=== PATIENT | female | born 1935 | race Caucasian/White ===

== ENCOUNTER 2016-12-19 07:53 | Outpatient (CLI) | payer MEDICARE ==
[~2016-12-19] VITALS: Ht 154.9 cm; Wt 54.5 kg
--- NOTE | ~2016-12-19 | OP ---
PATIENT NAME: NELLY LIM MEDICAL RECORD: [id number] :35 LOCATION:D.CAT ADMISSION DATE: SURGEON: EVA MCCORD MD DATE OF OPERATION: 12/19/2016 PROCEDURES: 1. PTCA stent RCA. 2. Left heart catheterization. 3. Selective coronary angiography. 4. Left ventriculogram. INDICATION: Angina and coronary artery disease. PROCEDURE IN DETAIL: After informed consent was obtained and after a detailed explanation of risks, benefits as well as alternative therapies, the patient elected to proceed with angiogram and angioplasty. The right radial area was prepped and draped in normal sterile fashion. The right radial artery was cannulated via modified Seldinger technique with placement of 6-Portuguese sheath. All catheters exchanged through this sheath. FINDINGS: The left ventriculogram was performed in the standard 30-degree [place] view reveals good cardiac wall motion throughout all segments. Overall ejection fraction estimated 60%. SELECTIVE CORONARY ANGIOGRAPHY: 1. Left main showed no significant angiographic disease. 2. Left anterior descending has an 80% to 90% stenosis in the mid vessel. 3. Left circumflex has moderate irregularities, but no flow-limiting stenosis. 4. Right coronary has 99% stenosis in the mid vessel. PTCA STENT OF THE RIGHT CORONARY: The stent used was a 3.0 x 38 mm Resolute. Result was 0% residual stenosis. OVERALL IMPRESSION: Successful percutaneous transluminal coronary angioplasty stent of the right coronary artery going from 99% initial stenosis to 0% residual. PLAN: PTCA stent of the LAD in the near future. TRANSINT:[id number] Voice Confirmation ID: [id number] DOCUMENT ID: [id number] EVA MCCORD MD CC: [id number] DICTATION DATE: 12/19/16 1105 CATERING TRUCK OPERATOR: 12/19/162021 DEP CLI 12/19/16 [place] [address]
--- NOTE | ~2016-12-19 | HEMODYNAMI ---
PATIENT:NELLY LIM MEDICAL RECORD: [id number] : 35 LOCATION:[facility] ADMISSION DATE: 12/19/16 Generatedon:12/19/201611:05 Patient name: NELLY LIM Patient #: [id number] SSN: DO B: 1935 Date of study: 12/19/2016 Page: Of Hemodynamic Procedure Report Patient Data Patient Demographics Procedure consent was obtained First Name: NELLY Gender: Female Last Name: RAPHAEL : 1935 [facility] Initial: RUTHANN Age: 81 year(s) Patient #: [id number] Race: Additional ID: [id number] Contact details [address]: [address] [place] [address] rd State: [place] City: [place] Zip code: [address] Past Medical History Allergies Allergen Reaction Date Comments Reported Penicillins 12/19/2016 Admission Admission Data Admission Date: 12/19/2016 Admission Time: 7:53 Height (in.): 61 BSA: 1.52 (m2) Height (cm.): 154.94 BMI: 22.67 (kg/m2) Weight (lbs.): 120 Weight (kg.): 54.43 Lab Results Lab Result Date: 12/19/2016 Lab Result Time: 0:00 Biochemistry Name Units Result Min Max Creatinine mg/dl 1.1 --(--*-)-- 0.6 1.3 CBC Name Units Result Min Max Hemoglobin g/dl 15.4 --(-*--)-- 13.5 17.5 Procedure Procedure Types Cath Procedure Diagnostic Procedure LHC LHC w/Coronaries PCI Procedure Coronary Stent Initial Miscellaneous Procedures Moderate Sedation up to 30 minutes Procedure Description Procedure Date Procedure Date: 12/19/2016 Procedure Start Time: 10:49 Procedure End Time: 11:05 Procedure Staff Name Function Rogelio Noonan MD Performing Physician Robert Santoyo RT Scrub Justin Coleman RN Nurse Sneha Goins RT Monitor Procedure Data Cath Procedure Fluoroscopy Diagnostic fluoroscopy Total fluoroscopy Time: 4.7 time: 4.7 min min Diagnostic fluoroscopy Total fluoroscopy dose: 295 dose: 295 mGy mGy Contrast Material Contrast Material Type Amount (ml) Isovue 300 75 Entry Location Entry Primary Successful Side Size Upsize Upsize Entry Closure Conti ccessful Closure Location (Fr) 1 (Fr) 2 (Fr) Remarks Device Remarks Radial Right 6 Fr Mechanical artery Short Compression Estimated blood loss: 10 ml Diagnostic catheters Device Type Used For End Catheter Placement Diagnostic Terumo 5Fr LV Angiography [place] 110cm catheter Diagnostic Terumo 5Fr Left Coronary [place] 110cm catheter Angiography Diagnostic Terumo 5Fr Right Coronary [place] 110cm catheter Angiography Procedure Complications No complications Procedure Medications Medication Administration Route Dosage Oxygen NC 2 l/min Heparin Flush Bag added to field 2 bags (1000units/500ml NS) 0.9% NaCl I.V. 100 ml/hr Radial Cocktail added to field 1 syringe (Verapomil 2mg/Nitro 400mcg/Heparin 1500units) Fentanyl I.V. 50 mcg Versed I.V. 1 mg Fentanyl I.V. 50 mcg Versed I.V. 1 mg Fentanyl I.V. 50 mcg Radial Cocktail I.A. 1 syringe (Verapomil 2mg/Nitro 400mcg/Heparin 1500units) Heparin Bolus I.V. 4000 units Hemodynamics Rest BSA: 1.52 (m2) HGB: 15.4 (g/dl) O2 Consumption: Estimated: 133.03 (ml/min) O2 Co nsumption indexed: Estimated:87.52 (ml/min/m) Heart Rate: 64 (bpm) Snapshots Pre Cath Intra NCS Post Cath Vital Signs Time Heart Resp SPO2 etCO2 FU6neuw NIBP (mmHg) Rhythm Pain Sedation Rate (ipm) (%) (mmHg) (mmHg) Status Level (bpm) 10:26:43 80 19 96 0 0 137/75(125) NSR 0 (11) 10(A) , No pain 10:30:53 73 17 96 0 0 143/85(110) NSR 0 (11) 10(A) , No pain 10:35:09 72 16 89 0 0 133/74(97) NSR 0 (11) 10(A) , No pain 10:39:23 69 19 97 0 0 126/72(87) NSR 0 (11) 9(A) , No pain 10:43:35 63 19 97 0 0 114/66(90) NSR 0 (11) 9(A) , No pain 10:47:45 66 19 96 0 0 111/61(89) NSR 0 (11) 9(A) , No pain 10:51:57 67 17 94 0 0 89/50(65) NSR 0 (11) 9(A) , No pain 10:56:00 66 18 93 0 0 95/51(68) NSR 0 (11) 9(A) , No pain 11:00:04 69 17 94 0 0 100/57(73) NSR 0 (11) 9(A) , No pain 11:03:52 70 17 94 0 0 101/58(74) NSR 0 (11) 9(A) , No pain Medications Time Medication Route Dose Verified Delivered Reason Note s Effectiveness by by 10:30:48 Oxygen NC 2 l/min Justin Anderson Per physician Jared Coleman RN RN 10:30:57 Heparin Flush added 2 bags Justin Anderson used for Bag to Jared Coleman RN procedure (1000units/500ml field RN NS) 10:31:07 0.9% NaCl I.V. 100 Justin Anderson Per physician ml/hr Jared Coleman RN RN 10:31:24 Radial Cocktail added 1 Justin Anderson used for (Verapomil to syringe Jared Coleman RN procedure 2mg/Nitro field RN 400mcg/Heparin 1500units) 10:36:14 Fentanyl I.V. 50 mcg Justin Larosey for sedation Jared Coleman RN RN 10:36:21 Versed I.V. 1 mg Justin Justin for sedation Jared Coleman RN RN 10:45:27 Fentanyl I.V. 50 mcg Justin Ujstin for sedation Jared Coleman RN RN 10:45:32 Versed I.V. 1 mg Justin Justin for sedation Jared Coleman RN RN 10:48:52 Fentanyl I.V. 50 mcg Justin Justin for sedation Jared Coleman RN RN 10:50:13 Radial Cocktail I.A. 1 Justin Kwokrey for (Verapomil syringe Jared pires 2mg/Nitro RN 400mcg/Heparin 1500units) 10:55:13 Heparin Bolus I.V. 4000 Justin Anderson for units Jared Coleman RN anticoagulation crusher setter Log Time Note 10:06:40 Justin Coleman RN sent for patient. Start room use. 10:15:59 Patient Height : 61 cm 10:16:04 Patient Weight : 120 kg 10:16:41 Time tracking: Regular hours 10:16:45 Plan of Care:Hemodynamics will remain stable., Cardiac rhythm will remain stable., Comfort level will be maintained., Respiratory function will remain adequate., Patient/ family verbilizes understanding of procedure., Procedure tolerated without complication., Recovers from procedure without complications.. 10:16:59 H&P Date Dictated: 12/04/2016 Within 30 days and on chart., H&P Addendum completed by physician on day of procedure. (MUST COMPLETE FOR ALL OUTPATIENTS). 10:17:07 ACC The patient was administered the following blood thiners within the last 24 hours: ACCAspirin, ACCPlavix 10:19:25 Patient received from Pre/Post Procedure Room to CCL 1 Alert and oriented. Tansferred to table in Supine position. 10:19:26 Warm blankets applied, and lavern hugger turned on for patient comfort. 10:19:27 Correct patient and procedure confirmed by team. 10:19:28 Signed procedure consent form obtained from patient. 10:19:29 ECG and BP/O2 sat monitors applied to patient. 10:19:30 Full Disclosure recording started 10:25:42 Vital chart was started 10:29:39 Rhythm: sinus rhythm 10:29:41 Baseline sample Acquired. 10:29:45 Pre-procedure instructions explained to patient. 10:29:45 Pre-op teaching completed and patient verbalized understanding. 10:29:46 Family in waiting room. 10:29:48 Patient NPO since Midnight. 10:29:54 Patient allergic to Penicillins 10:29:57 Is the patient allergic to Iodine/contrast media? No. 10:30:06 Is patient on blood thinner?Yes 10:30:13 Patient diabetic? No. 10:30:17 Previous problem with sedation/anesthesia? No ? 10:30:26 Snore? Yes 10:30:28 Sleep apnea? No 10:30:29 Deviated septum? No 10:30:30 Opens mouth fully? Yes 10:30:31 Sticks out tongue? Yes 10:30:34 Airway obstruction? No ? 10:30:36 Dentures? No ? 10:30:40 Pre procedure: right dorsailis pedis pulse 2+ Normal; easily identifiable; not easily obliterated 10:30:43 Modified Juan's test Ulnar < 7 seconds 10:30:44 Patient pain scale 0/10 ?. 10:30:48 Oxygen 2 l/min NC was administered by Justin Coleman RN; Per physician; 10:30:50 IV patent on arrival in left hand with 0.9% NaCl at [facility]. 10:30:57 Heparin Flush Bag (1000units/500ml NS) 2 bags added to field was administered by Justin Coleman RN; used for procedure; 10:31:07 0.9% NaCl 100 ml/hr I.V. was administered by Justin Coleman RN; Per physician; 10:31:08 Lab Result : Creatinine 1.1 mg/dl 10:31:08 Lab Result : Hemoglobin 15.4 g/dl 10:31:12 Lab results completed and on chart. 10:31:15 Right Radial & Right Groin area was prepped with chlora-prep and draped in sterile fashion 10:31:16 Alarms reviewed by R. N. 10:31:17 Sharps counted by scrub and verified by R.N. 10:31:19 Use device set Radial Dx 10:31:20 Acist Syringe opened to sterile field. 10:31:20 Medline Cath Pack opened to sterile field. 10:31:21 Bag Decanter opened to sterile field. 10:31:21 Terumo 6Fr Slender Glidesheath opened to sterile field. 10:31:21 St Vinicio 260cm J .035 wire opened to sterile field. 10:31:22 Acist Hand Control opened to sterile field. 10:31:22 Acist Manifold opened to sterile field. 10:31:23 Tegaderm 4 x 4 opened to sterile field. 10:31:23 MBrace Wrist Support opened to sterile field. 10:31:24 Radial Cocktail (Verapomil 2mg/Nitro 400mcg/Heparin 1500units) 1 syringe added to field was administered by Justin Coelman RN; used for procedure; 10:35:46 Final Timeout: patient, procedure, and site verified with staff and physician. All members of the team are in agreement. 10:35:52 Right Radial site verified by team. 10:35:56 Physical assessment completed. ASA score P 2 - A patient with mild systemic disease as per Rogelio Noonan MD. 10:36:00 Sedation plan: IV Moderate Sedation Versed, Fentanyl 10:36:14 Fentanyl 50 mcg I.V. was administered by Justin Coleman RN; for sedation; 10:36:21 Versed 1 mg I.V. was administered by Justin Coleman RN; for sedation; 10:45:27 Fentanyl 50 mcg I.V. was administered by Justin Coleman RN; for sedation; 10:45:32 Versed 1 mg I.V. was administered by Justin Coleman RN; for sedation; 10:48:52 Fentanyl 50 mcg I.V. was administered by Justin Coleman RN; for sedation; 10:49:18 Procedure started. 10:49:25 Local anesthetic to right radial artery with Lidocaine 2% by Rogelio Noonan MD.INITIAL ACCESS ONLY 10:49:36 A 6 Fr Short sheath was inserted into the Right Radial artery 10:50:04 A Diagnostic Terumo 5Fr [place] 110cm catheter was advanced over the wire and used for LV Angiography. 10:50:13 Radial Cocktail (Verapomil 2mg/Nitro 400mcg/Heparin 1500units) 1 syringe I.A. was administered by Rogelio Noonan MD; for vasodilation; 10:51:16 LV gram done using [place] 10:51:22 EF : 60 % 10:51:26 Injector settings: Ml/sec: 5, Volume: 15, 10:51:46 A Diagnostic Terumo 5Fr [place] 110cm catheter was advanced over the wire and used for Left Coronary Angiography. 10:51:58 Ondore BasixCompak Inflation Kit opened to sterile field. 10:51:59 Moran Whisper J 300cm 0.014 guide wire opened to sterile field. 10:52:42 A Diagnostic Terumo 5Fr [place] 110cm catheter was advanced over the wire and used for Right Coronary Angiography. 10:53:00 Catheter removed. 10:53:39 Medtronic Launcher 6Fr AR 2.0 guide catheter opened to sterile field. 10:54:52 6 Fr AR 2.0 guide catheter was inserted over the wire 10:55:13 Heparin Bolus 4000 units I.V. was administered by Justin Coleman RN; for anticoagulation; 10:55:30 Whisper wire advanced. 10:56:41 Inflation number: 1 A [place] Sci [place] 2.5 X 12 balloon was prepped and advanced across the Mid RCA, then inflated to 13 KATHERINE for 0:17 (min:sec). 10:56:57 Inflation number: 2 The [place] Sci [place] 2.5 X 12 balloon was reinflated across the Mid RCA, to 13 KATHERINE for 0:09 (min:sec). 10:57:53 Balloon removed over the wire. 10:59:37 Inflation Number: 3 A Medtronic Resolute 3.0 X 38 stent was prepped and advanced across the Mid RCA. The stent was deployed at 11 KATHEIRNE for 0:05 (min:sec). 11:00:18 Stent catheter was removed intact over wire. 11:00:20 Wire removed. 11:00:21 Guide catheter removed. 11:00:44 Sheath removed intact; hemostasis achieved with Mechanical Compression to the Right Radial artery. 11:00:46 Procedure ended.(Physican Out) 11:01:08 Fluoroscopy time 04.70 minutes. 11:01:12 Fluoroscopy dose: 295 mGy 11:01:12 Flurop Dose total: 295 11:01:17 Contrast amount:Isovue 300 75ml. 11:01:18 Sharps counted by scrub and verified by R.N. 11:01:20 TR band inflated with 12cc of air. 11:01:27 Terumo TR Band Standard opened to sterile field. 11:01:30 Insertion/operative site no bleeding no hematoma. 11:01:35 Post right radial artery:stable, clean and dry 11:01:37 Post Procedure Pulses reassessed and unchanged 11:01:40 Post-procedure physical assessment completed. ASA score P 2 - A patient with mild systemic disease as per Rogelio Noonan MD. 11:01:43 Post procedure rhythm: unchanged. 11:01:47 Estimated blood loss: 10 ml 11:01:49 Post procedure instruction explained to patient.Patient verbalizes understanding. 11:01:50 Patient needs reinforcement of post procedure teaching. 11:02:00 Procedure type changed to Cath procedure, Diagnostic procedure, LHC, LHC w/Coronaries, PCI procedure, Coronary Stent Initial, Miscellaneous Procedures, Moderate Sedation up to 30 minutes 11:02:05 Procedure Complication : No complications 11:02:07 See physician's report for complete and final results. 11:05:06 Procedure and supply charges have been captured, reviewed, submitted and are correct. 11:05:09 Vital chart was stopped 11:05:11 Report given to Pre/Post Procedure Room. 11:05:14 Patient transfered to Pre/Post Procedure Room with Stretcher. 11:05:20 Procedure ended. 11:05:20 Full Disclosure recording stopped 11:05:23 End room use (Document Last) Intervention Summary Intervention Notes Time ActionType Lesion and Equipment Action# Pressure Duration Attributes Used 10:56:41 Inflate Mid RCA [place] 1 13 00:17 balloon Sci [place] 2.5 X 12 balloon 10:56:57 Reinflate Mid RCA [place] 2 13 00:09 balloon Sci [place] 2.5 X 12 balloon 10:59:37 Place stent Mid RCA Medtronic 3 11 00:05 Resolute 3.0 X 38 stent Device Usage Item Name Manufacture Quantity Catalog Number Hospital Part Current Mini tonsil hospital Lot# / Charge Number Stock Stock Serial# Code Acist Acist 1 02254 636122 717822 346960 20 Syringe Medical Systems Inc Medline Cardinal 1 [id number] [id number] 16656 445760 5 Cath Pack Health Bag Microtek 1 2002S 851866 69943 044263 5 Stazoo.[employer]. Terumo 6Fr Terumo 1 [id number] 470551 387220 885159 [address] V[facility] St Vinicio 1 758647 230835 932003 127278 30 260cm J .035 wire Acist Hand Acist 1 32889 034081 858930 742929 5 Control Medical Systems Inc Acist Acist 1 13185 869859 041801 086354 5 Manifold Medical Systems Inc Tegaderm 4 3M 1 1626W 536528 975690 927647 5 x 4 MBrace Advanced 1 140-0250-00 572226 38672 643473 5 Wrist Vascular Support Dynamics Diagnostic Terumo 1 23-2799 839112 258422 629698 5 Terumo 5Fr [place] 110cm catheter Merit Merit 1 [id number] 974165 595370 789533 15 BasixCompak Medical Inflation Kit Moran Moran 1 [id number] 275619 482428 701698 5 Whisper J Vascular 300cm 0.014 guide wire Medtronic Medtronic 1 [id number] 478858 73375 182179 1 Launcher 6Fr AR 2.0 guide catheter [place] Sci [place] 1 [id number] 279628 576208 299716 1 [id number] Samba Ads 2.5 X 12 balloon Medtronic Medtronic 1 [id number] 039635 221753 0 [id number] Resolute 3.0 X 38 stent Terumo TR Terumo 1 [id number] 842626 763357 955487 40 Band Standard Signature Audit [place] Stage Time Signature Unsigned Intra-Procedure 12/19/2016 Sneha 11:05:33 AM Counts RT(R) Signatures Monitor : Sneha Signature : Counts RT Date : Time : [place] [id number] [place] [address]
[2016-12-19 08:47] VITALS: BP 158/81; Ht 154.9 cm; Wt 54.5 kg
[2016-12-19] MEDS ORDERED: PLAVIX75 MG PO (08:52)
[2016-12-19] MEDS ORDERED: LEVOTHYROXINE50 MCG PO (08:52)
[2016-12-19] MEDS ORDERED: BAYER CHEWABLE81 MG PO (08:52)
[2016-12-19] MEDS ORDERED: NORVASC5 MG PO (08:52)
[2016-12-19 08:56] LABS: BASOPHILS 0.4 % (0-2); EOSINOPHILS 2.8 % (0-7); HEMATOCRIT 46.6 % (36.0-48.0); HEMOGLOBIN 15.4 g/dL (12-16); IMMATURE GRANULOCYTES 0.4 % (0-5); LYMPHOCYTES 17.3 % (15-50); MCH 30.7 pg (26.0-34.0); MEAN PLATELET VOLUME 10.5 fL (7.4-10.4); MONOCYTES 9.7 % (2-11); NEUTROPHILS 69.4 % (40-80); PLATELET COUNT 172 10x3/uL (130-400); RBC 5.01 10x6/uL (4.00-5.40); WBC 7.5 10x3/uL (4.8-10.8)
[2016-12-19 09:04] LABS: ANION GAP 13.9 mmol/L (8-16); CALCIUM 9.6 mg/dL (8.5-10.1); CREATININE - SERUM 1.1 mg/dL (0.6-1.3); POTASSIUM - SERUM 3.9 mmol/L (3.5-5.1)
--- NOTE | 2016-12-19 11:30 | NUR ---
RESTING QUIETLY. 2L NC, NO RESP DISTRESS NOTED. RIGHT WRIST TR BAND IN PLACE, NO BLEEDING OR HEMATOMA NOTED. VSS. NO C/O CHEST PAIN OR NAUSEA. WILL CONTINUE TO MONITOR.
--- NOTE | 2016-12-19 12:00 | NUR ---
ICE CHIPS GIVEN, NO C/O NAUSEA OR CHEST PAIN. 2L NC, NO RESP DISTRESS NOTED. RIGHT WRIST TR BAND IN PLACE, NO BLEEDING OR HEMATOMA NOTED. VSS. WILL CONTINUE TO MONITOR.
--- NOTE | 2016-12-19 12:15 | NUR ---
2L NC, NO RESP DISTRESS NOTED. VSS. NO C/O CHEST PAIN OR NAUSEA. RIGHT WRIST TR BAND IN PLACE, NO BLEEDING OR HEMATOMA NOTED.
--- NOTE | 2016-12-19 12:45 | NUR ---
RIGHT WRIST TR BAND IN PLACE, NO BLEEDING OR HEMATOMA NOTED. 2L NC, NO RESP DISTRESS. NO C/O AT THIS TIME. AT BEDSIDE, CALL LIGHT WITHIN REACH.
--- NOTE | 2016-12-19 13:49 | NUR ---
UP TO RESTROOM WITH ASSISTANCE TO VOID.
--- NOTE | 2016-12-19 14:13 | NUR ---
SANDWICH TRAY GIVEN. RIGHT WRIST TR BAND IN PLACE, NO BLEEDING NOTED. NO C/O AT THSI TIME.
--- NOTE | 2016-12-19 14:21 | NUR ---
2CC OF AIR REMOVED FROM TR BAND, NO BLEEDING NOTED.
--- NOTE | 2016-12-19 14:32 | NUR ---
3CC OF AIR REMOVED FROM TR BAND. NO BLEEDING OR HEMATOMA NOTED.
--- NOTE | 2016-12-19 14:51 | NUR ---
LEFT FA PIV D/C'D WITH CATHETER INTACT, BAND AID TO SITE. UP TO BEDSIDE TO GET DRESSED.
--- NOTE | 2016-12-19 14:55 | NUR ---
REMAINING AIR REMOVED FROM TR BAND, TEGADERM TO SITE. DISCHARGE INSTRUCTIONS GIVEN, VERBALIZED UNDERSTANDING.
--- NOTE | 2016-12-19 15:10 | NUR ---
TAKEN OUT VIA WHEELCHAIR BY CATH COAL UNLOADER. LEFT FACILITY WITH FAMILY MEMBER AND ALL PERSONAL BELONGINGS.
== END 2016-12-19 15:10 | disposition home or self-care (01) ==
LOC: D.CATH 07:53
PROVIDERS: Internal Medicine Interventional Cardiology
DX: I20.9 Angina pectoris, unspecified (principal); R06.02 Shortness of breath; I10 Essential (primary) hypertension; R94.30 Abnormal result of cardiovascular function study, unspecified; Z01.812 Encounter for preprocedural laboratory examination
CPT/HCPCS: 93458; C9600

== ENCOUNTER 2016-12-29 08:05 | Outpatient (CLI) | payer MEDICARE ==
[~2016-12-29] VITALS: Ht 154.9 cm; Wt 54.5 kg
--- NOTE | ~2016-12-29 | HEMODYNAMI ---
PATIENT:NELLY LIM MEDICAL RECORD: [id number] : 35 LOCATION:[facility] ADMISSION DATE: 12/29/16 Generatedon:12/29/201610:29 Patient name: NELLY LIM Patient #: [id number] SSN: [id number] : 1935 Date of study: 12/29/2016 Page: Of Hemodynamic Procedure Report Patient Data Patient Demographics Procedure consent was obtained First Name: NELLY Gender: Female Last Name: RAPHEAL : 1935 Middle Initial: RUTHANN Age: 81 year(s) Patient #: [id number] Race: SSN: [id number] Additional ID: [id number] Contact details Address: [address] [place] [address] rd State: [place] City: [place] Zip code: [address] Past Medical History Allergies Allergen Reaction Date Comments Reported Penicillins 12/19/2016 Other allergy 12/29/2016 penicillin Admission Admission Data Admission Date: 12/29/2016 Admission Time: 8:05 Arrival Date: 12/29/2016 Arrival Time: 8:05 Admit Source: Other Insurance Payor: Medicare Lab Results Lab Result Date: 12/29/2016 Lab Result Time: 0:00 Biochemistry Name Units Result Min Max BUN mg/dl 21 --(----)-* 7 18 Creatinine mg/dl 1.2 --(---*)-- 0.6 1.3 CBC Name Units Result Min Max Hemoglobin g/dl 15 --(-*--)-- 13.5 17.5 Procedure Procedure Types Cath Procedure PCI Procedure Coronary Stent Initial PTCA Additional Miscellaneous Procedures Moderate Sedation up to 30 minutes Procedure Description Procedure Date Procedure Date: 12/29/2016 Procedure Start Time: 10:14 Procedure End Time: 10:27 Procedure Staff Name Function Rogelio Noonan MD Performing Physician Bryanna Wellington RT Scrub Serge Lilly RN Nurse Kaylie Casas RT Monitor Indication Angina Procedure Data Cath Procedure Fluoroscopy Diagnostic fluoroscopy Total fluoroscopy Time: 5.2 time: 5.2 min min Diagnostic fluoroscopy Total fluoroscopy dose: 301 dose: 301 mGy mGy Contrast Material Contrast Material Type Amount (ml) Isovue 300 51 Entry Location Entry Primary Successful Side Size Upsize Upsize Entry Closure Conti ccessful Closure Location (Fr) 1 (Fr) 2 (Fr) Remarks Device Remarks Radial Right 6 Fr Mechanical artery Short Compression Estimated blood loss: 5 ml Procedure Complications No complications Procedure Medications Medication Administration Route Dosage Oxygen NC 2 l/min Lidocaine 2% added to field 20 Heparin Flush Bag added to field 2 bags (1000units/500ml NS) 0.9% NaCl I.V. 100 ml/hr Versed I.V. 1 mg Fentanyl I.V. 50 mcg Radial Cocktail I.A. 1 syringe (Verapomil 2mg/Nitro 400mcg/Heparin 1500units) Versed I.V. 1 mg Fentanyl I.V. 50 mcg Heparin Bolus I.V. 4000 units Hemodynamics Rest HGB: 15 (g/dl) Heart Rate: 57 (bpm) Snapshots Pre Cath Intra NCS Post Cath Vital Signs Time Heart Resp SPO2 NIBP Rhythm Pain Sedation Rate (ipm) (%) (mmHg) Status Level (bpm) 10:01:26 57 15 100 141/68(93) NSR 0 (11) 10(A) , No pain 10:05:46 54 15 98 122/60(97) NSR 0 (11) 10(A) , No pain 10:10:02 55 17 95 102/53(73) NSR 0 (11) 10(A) , No pain 10:14:08 62 15 95 98/57(76) NSR 0 (11) 9(A) , No pain 10:18:20 63 14 98 85/39(76) NSR 0 (11) 9(A) , No pain 10:22:19 66 15 96 103/61(81) NSR 0 (11) 9(A) , No pain 10:26:29 54 15 97 105/48(81) NSR 0 (11) 10(A) , No pain Medications Time Medication Route Dose Verified Delivered Reason Note s Effectiveness by by 10:00:50 Oxygen NC 2 l/min Rogelio Valentine used for Shaista Lilly environmental health safety manager 10:00:57 Lidocaine 2% added 20ml Rogelio Mercado for local to vial Shaista Noonan MD anesthetic field 10:01:02 Heparin Flush added 2 bags Rogelio Mercado used for Bag to Shaista Noonan MD procedure (1000units/500ml field NS) 10:01:10 0.9% NaCl I.V. 100 Rogelio Valentine Per physician ml/hr Shaista Lilly RN 10:09:48 Versed I.V. 1 mg Rogelio Valentine for sedation Shaista Lilly RN 10:09:54 Fentanyl I.V. 50 mcg Rogelio Garcíaie for sedation Shaista Lilly RN 10:15:36 Radial Cocktail I.A. 1 Rogelio Mercado for (Verapomil syringe Shaista Noonan MD vasodilation 2mg/Nitro 400mcg/Heparin 1500units) 10:15:41 Versed I.V. 1 mg Rogelio Garcíaie for sedation Shaista Lilly RN 10:15:45 Fentanyl I.V. 50 mcg Rogelio Valentine for sedation Shaista Lilly RN 10:16:46 Heparin Bolus I.V. 4000 Rogelio Valentine for veri fied units Shaista Lilly RN anticoagulation with dr noonan Procedure Log Time Note 9:46:34 Informed consent obtained and on chart 9:47:21 Admit Source: Other 9:47:30 Arrival Date: 12/29/2016 8:05:00 AM 9:47:54 Insurance Payor : Medicare 9:48:05 Diagnostic Cath Status : Elective 9:48:34 Indication : Angina 9:48:40 Serge Lilly RN sent for patient. Start room use. 9:48:41 Time tracking: Regular hours 9:48:45 Plan of Care:Hemodynamics will remain stable., Cardiac rhythm will remain stable., Comfort level will be maintained., Respiratory function will remain adequate., Patient/ family verbilizes understanding of procedure., Procedure tolerated without complication., Recovers from procedure without complications.. 9:52:30 Patient received from Pre/Post Procedure Room to CCL 2 Alert and oriented. Tansferred to table in Supine position. 9:52:32 Warm blankets applied, and lavern hugger turned on for patient comfort. 9:52:32 Correct patient and procedure confirmed by team. 9:52:33 ECG and BP/O2 sat monitors applied to patient. 10:00:14 Vital chart was started 10:00:50 Oxygen 2 l/min NC was administered by Serge Lilly RN; used for procedure; 10:00:57 Lidocaine 2% 20ml vial added to field was administered by Rogelio Noonan MD; for local anesthetic; 10:01:02 Heparin Flush Bag (1000units/500ml NS) 2 bags added to field was administered by Rogelio Noonan MD; used for procedure; 10:01:10 0.9% NaCl 100 ml/hr I.V. was administered by Serge Lilly RN; Per physician; 10:02:11 Baseline sample Acquired. 10:02:16 Rhythm: sinus rhythm 10:02:18 Full Disclosure recording started 10:02:23 H&P Date Dictated: 12/29/2016 Within 30 days and on chart., H&P Addendum completed by physician on day of procedure. (MUST COMPLETE FOR ALL OUTPATIENTS). 10:02:25 Pre-procedure instructions explained to patient. 10:02:25 Pre-op teaching completed and patient verbalized understanding. 10:02:26 Family in waiting room. 10:02:28 Patient NPO since Midnight. 10:02:46 Patient allergic to Other allergypenicillin 10:02:49 Is the patient allergic to Iodine/contrast media? No. 10:02:50 Was the patient premedicated? No 10:02:51 Is patient on blood thinner?Yes 10:02:54 ACC The patient was administered the following blood thiners within the last 24 hours: ACCPlavix 10:04:20 Patient diabetic? No. 10:04:24 Previous problem with sedation/anesthesia? No ? 10:04:26 Snore? Yes 10:04:27 Sleep apnea? No 10:04:27 Deviated septum? No 10:04:28 Opens mouth fully? Yes 10:04:29 Sticks out tongue? Yes 10:04:31 Airway obstruction? No ? 10:04:33 Dentures? No ? 10:04:36 Pre procedure: right dorsailis pedis pulse 1+ Palpable, but thready & weak; easily obliterated 10:04:39 Patient pain scale 0/10 ?. 10:04:44 IV patent on arrival in left hand with 0.9% NaCl at [facility] 10:06:24 Lab Result : BUN 21 mg/dl 10:06:24 Lab Result : Creatinine 1.2 mg/dl 10:06:24 Lab Result : Hemoglobin 15 g/dl 10:06:27 Lab results completed and on chart. 10:06:33 Right Radial & Right Groin area was prepped with chlora-prep and draped in sterile fashion 10:06:34 Alarms reviewed by R. N. 10:06:34 Sharps counted by scrub and verified by R.N. 10:06:36 Physician arrived 10:06:37 --------ALL STOP TIME OUT------ 10:06:37 Final Timeout: patient, procedure, and site verified with staff and physician. All members of the team are in agreement. 10:06:39 Right Radial & Right Groin site verified by team. 10:06:41 Physical assessment completed. ASA score P 2 - A patient with mild systemic disease as per Rogelio Noonan MD. 10:06:44 Sedation plan: IV Moderate Sedation Versed, Fentanyl 10:06:52 Use device set Radial PCI 10:06:53 Acist Syringe opened to sterile field. 10:06:53 Acist Hand Control opened to sterile field. 10:06:54 Bag Decanter opened to sterile field. 10:06:54 Medline Cath Pack opened to sterile field. 10:06:55 Merit BasixCompak Inflation Kit opened to sterile field. 10:06:56 Terumo 6Fr Slender Glidesheath opened to sterile field. 10:06:56 Acist Manifold opened to sterile field. 10:06:57 Tegaderm 4 x 4 opened to sterile field. 10:06:58 MBrace Wrist Support opened to sterile field. 10:06:58 St Vinicio 260cm J .035 wire opened to sterile field. 10:09:48 Versed 1 mg I.V. was administered by Serge Lilly RN; for sedation; 10:09:54 Fentanyl 50 mcg I.V. was administered by Serge Lilly RN; for sedation; 10:11:40 Procedure started. 10:14:15 Local anesthetic to right radial artery with Lidocaine 2% by Rogelio Noonan MD.INITIAL ACCESS ONLY 10:14:24 A 6 Fr Short sheath was inserted into the Right Radial artery 10:14:31 Moran Whisper J 300cm 0.014 guide wire opened to sterile field. 10:14:42 Cordis 6FR XBLAD 3.5 guide catheter opened to sterile field. 10:14:54 6 Fr xblad 3.5 guide catheter was inserted over the wire 10:15:07 whisper wire advanced. 10:15:09 Wire advanced across lesion. 10:15:36 Radial Cocktail (Verapomil 2mg/Nitro 400mcg/Heparin 1500units) 1 syringe I.A. was administered by Rogelio Noonan MD; for vasodilation; 10:15:41 Versed 1 mg I.V. was administered by Serge Lilly RN; for sedation; 10:15:45 Fentanyl 50 mcg I.V. was administered by Serge Lilly RN; for sedation; 10:16:04 Zero performed for pressure channel P1 10:16:09 Zero performed for pressure channel P1 10:16:17 Zero performed for pressure channel P1 10:16:34 LCA angiography performed. 10:16:38 Injector settings: Ml/sec: 3, Volume: 6, 10:16:46 Heparin Bolus 4000 units I.V. was administered by Serge Lilly RN; for anticoagulation; verified with dr noonan 10:19:02 Inflation Number: 1 A Medtronic Resolute 2.5 X 18 stent was prepped and advanced across the Mid LAD. The stent was deployed at 13 KATHERINE for 0:10 (min:sec). 10:21:03 Wire redirected to diagonal. 10:21:21 Stent catheter was removed intact over wire. 10:23:39 Inflation number: 1 A Euphora 1.5 x 12 balloon was prepped and advanced across the 1st Diag, then inflated to 7 KATHERINE for 0:10 (min:sec). 10:24:10 Inflation number: 2 The Euphora 1.5 x 12 balloon was reinflated across the 1st Diag, to 13 KATHERINE for 0:10 (min:sec). 10:25:04 Balloon removed over the wire. 10:25:04 Wire removed. 10:25:05 Guide catheter removed. 10:25:12 Terumo TR Band Standard opened to sterile field. 10:25:24 Sheath removed intact; hemostasis achieved with Mechanical Compression to the Right Radial artery. 10:25:26 Procedure ended.(Physican Out) 10:26:08 Fluoroscopy time 05.20 minutes. 10::14 Flurop Dose total: 301 10:26:14 Fluoroscopy dose: 301 mGy 10:26:20 Contrast amount:Isovue 300 51ml. 10:26:21 Sharps counted by scrub and verified by R.N. 10:26:25 TR band inflated with 10cc of air. 10:26:27 Insertion/operative site no bleeding no hematoma. 10:26:31 Post right radial artery:stable 10:26:33 Post Procedure Pulses reassessed and unchanged 10::36 Post procedure rhythm: unchanged. 10::39 Estimated blood loss: 5 ml 10::40 Post procedure instruction explained to patient.Patient verbalizes understanding. 10:26:41 Patient needs reinforcement of post procedure teaching. 10:27:01 Procedure type changed to Cath procedure, PCI procedure, Coronary Stent Initial, PTCA Additional, Miscellaneous Procedures, Moderate Sedation up to 30 minutes 10:27:02 Procedure and supply charges have been captured, reviewed, submitted and are correct. 10:27:07 Procedure Complication : No complications 10:27:09 Vital chart was stopped 10:27:10 See physician's report for complete and final results. 10:27:14 Report given to Pre/Post Procedure Room. 10:27:20 Patient transfered to Pre/Post Procedure Room with Stretcher. 10:27:24 Procedure ended. 10:27:24 Full Disclosure recording stopped 10:27:30 ACC-PCI Only Patient was given prescriptions, or instructed by Rogelio Noonan MD to start/continue the following medications upon discharge: Plavix 10:27:33 End room use (Document Last) Intervention Summary Intervention Notes Time ActionType Lesion and Equipment Action# Pressure Duration Attributes Used 10:19:02 Place stent Mid LAD Medtronic 1 13 00:10 Resolute 2.5 X 18 stent 10:23:39 Inflate 1st Diag Euphora 1 7 00:10 balloon 1.5 x 12 balloon 10:24:10 Reinflate 1st Diag Euphora 2 13 00:10 balloon 1.5 x 12 balloon Device Usage Item Name Manufacture Quantity Catalog Hospital Part Current Minimal Lot# / Number Charge Number Stock Stock Serial# Code Acist Acist 1 98555 [id number] 517346 063861 20 Syringe Medical Systems Inc Acist Hand Acist 1 64813 329683 575337 964086 5 Arigami [employer] Private Inc Bag Microtek 1 573591 84492 389345 5 DecLymbix Medical Inc. Medline Cardinal 1 [id number] 284161 58154 510866 5 Cath [facility] Merit Merit 1 [id number] 084210 074271 212893 15 BasixBetterWorks Medical Inflation Kit Terumo 6Fr Terumo 1 [id number] 286532 588262 932230 40 Slender Glidesheath Acist Acist 1 17916 843547 538884 587583 5 Simple.TV Medical Systems Inc Tegaderm 4 3M 1 1626W 469451 101057 428579 5 x 4 MBrace Advanced 1 140-0250-00 252479 49434 406674 [address] Vinicio St Vinicio 1 619982 549947 647092 135873 30 260cm J .035 wire Moran Moran 1 [id number] 453471 690041 070844 5 Whisper J Vascular 300cm 0.014 guide wire Cordis 6FR Cardinal 1 [id number] 242790 116297 580818 10 XBLAD 3.5 Health guide catheter Medtronic Medtronic 1 [id number] 475470 777606 6 [id number] Resolute 2.5 X 18 stent Euphora 1.5 Medtronic 1 [id number] 285787 532831 364032 5 [id number] x 12 balloon Terumo TR Terumo 1 [id number] 244711 901584 782653 40 Band Standard Signature Audit Allen Stage Time Signature Unsigned Intra-Procedure 12/29/2016 Kaylie Casas 10:29:01 AM RT(R) Signatures Monitor : Kaylie Casas RT Signature : Date : Time : [facility] [address] [place] [address]
--- NOTE | ~2016-12-29 | HP ---
PATIENT: NELLY YOUSIF MEDICAL RECORD: [id number] ACCOUNT: [id number] LOCATION:[facility] : 35 ADMISSION DATE: 12/29/16 HISTORY AND PHYSICAL EXAMINATION ADMITTING DIAGNOSES: 1. Angina. 2. Coronary artery disease. 3. Recent percutaneous transluminal coronary angioplasty stent of the right coronary artery with concomitant disease of the left anterior descending. HISTORY OF PRESENT ILLNESS: Mrs. Yousif presents with unstable anginal symptomatology, found to have critical disease of the RCA and LAD, underwent successful PTCA stent of the RCA, now brought back for PTCA stent of the LAD. PHYSICAL EXAMINATION: GENERAL APPEARANCE: Well-nourished, well-developed, appears stated age. Level of distress, comfortable. PSYCHIATRIC: Mental status, alert, normal affect. Orientation, oriented to time, place and person. EYES: Lids and conjunctiva, noninjected. No discharge, no pallor. ENT: Lips, teeth, gums, normal dentition. Oropharynx, no cyanosis, no pallor. NECK: Carotid arteries, bilateral normal upstroke, no bruits, no thrills. JUGULAR VEINS: No jugular venous pressure or distention. CERVICAL LYMPH NODES: Nontender, nonenlarged. THYROID: Not enlarged. Nontender. No nodules. LUNGS: Respiratory effort, unlabored. CHEST: Normal curvature. No thoracic deformity. No chest wall tenderness. Percussion, resonant. Auscultation, clear. No wheezes, no rales, no rhonchi. CARDIOVASCULAR: Precordial exam, nondisplaced. No heaves or pericardial thrills. Rate and rhythm, regular. Heart sounds, normal S1, normal S2. No S3, no gallop, no rub. Systolic murmur, not heard. Diastolic murmur, not heard. EXTREMITIES: No cyanosis, no edema. Peripheral pulses, full and equal in all extremities, except as noted. No bruits appreciated. ABDOMEN: Soft, nondistended. Normal aorta. No bruit. Nontender. No masses. Liver, nontender, no hepatomegaly. Spleen, nontender, no splenomegaly. MUSCULOSKELETAL: No joint tenderness. No joint swelling. No erythema. NEUROLOGICAL: Normal gait, normal strength, normal tone. SKIN: Warm and dry. REVIEW OF SYSTEMS: The patient reports easy bruising but reports no swollen glands. The patient reports no fever, no night sweats, no significant weight gain, no significant weight loss. No significant exercise tolerance. The patient reports no dry eyes, no irritation, no vision change. Patient reports no difficulty hearing and no ear pain. Patient reports no frequent nose bleeds or nose and sinus problems. Patient reports on arm pain on exertion. No shortness of breath while lying down. No history of heart murmur. Patient reports no cough, no wheezing or coughing up blood. Patient reports no abdominal pain, no vomiting. Normal appetite. No diarrhea and not vomiting blood. No nausea and no constipation. Patient reports no incontinence. No difficulty urinating. No hematuria. No increased frequency. Patient reports no muscle aches. No weakness, no arthralgias, no back pain. No swelling of the extremities. Patient reports no abnormal mole, no jaundice, no rashes. Reports no loss of consciousness. No weakness and no numbness. No seizures, dizziness, or headaches. The patient reports no depression, no sleep disturbance, feeling HISTORY AND PHYSICAL [id number] FOELKER,NELLY FLORESIS safe in a relationship and no alcohol abuse. Patient reports on fatigue. Reports no runny nose or sinus pressure. No itching, no hives, and no frequent sneezing. OVERALL IMPRESSION: Anginal symptomatology with significant disease of the left anterior descending, proceed with percutaneous transluminal coronary angioplasty stent of the left anterior descending. TRANSINT:[id number] Voice Confirmation ID: [id number] DOCUMENT ID: [id number] EVA MCCORD MD CC: [id number] DICTATION DATE: 12/29/16 1042 TEST ANALYST: 12/29/16 1541 DEP CLI 12/29/16 [place] [id number] [place] [id number]
--- NOTE | ~2016-12-29 | OP ---
PATIENT NAME: NELLY LIM MEDICAL RECORD: [id number] :35 LOCATION:D.[facility] ADMISSION DATE: SURGEON: EVA MCCORD MD DATE OF OPERATION: 12/29/2016 PROCEDURES: 1. PTCA stent LAD. 2. Selective coronary angiography. 3. PTCA LAD diagonal. INDICATION: Angina and coronary artery disease. PROCEDURE IN DETAIL: After informed consent was obtained and after detailed explanation of risks, benefits as well as alternative therapies, the patient elected to proceed with angiogram and angioplasty. The right radial area was prepped and draped in normal sterile fashion. The right radial artery was cannulated via modified Seldinger technique with placement of 6-Stateless sheath. All catheters exchanged through this sheath. FINDINGS: The left anterior descending has a 90% stenosis in the mid vessel. This was addressed with a 2.5 x 14 mm Resolute stent. This caused plaque shift into the diagonal. The diagonal was addressed with 1.5 balloon. Result was 0% residual throughout. OVERALL IMPRESSION: Successful percutaneous transluminal coronary angioplasty stent of the left anterior descending going from 90% initial stenosis to 0% residual. TRANSINT:[id number] Voice Confirmation ID: [id number] DOCUMENT ID: [id number] EVA MCCORD MD CC: [id number] DICTATION DATE: 12/29/16 1027 ROVING CAN TENDER: 12/29/162015 [facility] CLI 12/29/16 [place] [id number]
[~2016-12-29 08:05] MED LIST: BAYER CHEWABLE81 MG PO; LEVOTHYROXINE50 MCG PO; NORVASC5 MG PO; PLAVIX75 MG PO
[2016-12-29 08:25] VITALS: BP 118/82; Ht 154.9 cm; Wt 54.5 kg
[2016-12-29 08:41] LABS: BASOPHILS 0.6 % (0-2); EOSINOPHILS 2.6 % (0-7); HEMATOCRIT 45.9 % (36.0-48.0); LYMPHOCYTES 20.3 % (15-50); MCH 30.7 pg (26.0-34.0); MCHC 32.7 g/dL (31.0-37.0); MCV 94.1 fL (80.0-100.0); MEAN PLATELET VOLUME 10.2 fL (7.4-10.4); MONOCYTES 7.3 % (2-11); NEUTROPHILS 69.2 % (40-80); PLATELET COUNT 197 10x3/uL (130-400); RBC 4.88 10x6/uL (4.00-5.40); RDW 12.8 % (11.5-14.5); WBC 6.5 10x3/uL (4.8-10.8)
[2016-12-29 08:51] LABS: ANION GAP 14.9 mmol/L (8-16); CALCIUM 9.2 mg/dL (8.5-10.1); CARBON DIOXIDE 25.1 mmol/L (21.0-32.0); CREATININE - SERUM 1.2 mg/dL (0.6-1.3)
--- NOTE | 2016-12-29 10:55 | NUR ---
2L NC, NO RESP DISTRESS NOTED. RIGHT WRIST TR BAND IN PLACE, NO BLEEDING OR HEMATOMA NOTED. NO C/O CHEST PAIN OR NAUSEA. THERMAL ENGINEER SHOWS SINUS JOSIANE AT RATE OF 48. VSS. WILL CONTINUE TO MONITOR.
--- NOTE | 2016-12-29 11:30 | NUR ---
1130 CHEST PAIN DENIED WITH VSS TR BAND TO R/WRIST CDI NO BLEEDING NO HEMATOMA NOTED. FAMILY AT SIDE
--- NOTE | 2016-12-29 11:45 | NUR ---
QUETLY RESTING IN BED. 2L NC, NO RESP DISTRESS NOTED. VSS. RIGHT WRIST TR BAND CDI, NO BLEEDING OR HEMATOMA NOTED.
--- NOTE | 2016-12-29 12:15 | NUR ---
2L NC. NO RESP DISTRESS. ROOF BOLTER HELPER SHOWS SB @ 48. NO C/O CHEST PAIN OR NAUSEA. TR BAND CDI.
--- NOTE | 2016-12-29 13:00 | NUR ---
SANDWICH TRAY AND DRINK GIVEN. NO N/V NOTED. VSS. NO C/O CHEST PAIN, RIGHT WRIST TR BAND CDI.
--- NOTE | 2016-12-29 13:43 | NUR ---
2CC OF AIR REMOVED FROM TR BAND, NO BLEEDING NOTED.
--- NOTE | 2016-12-29 14:03 | NUR ---
3CC OF AIR REMOVED FROM TR BAND, NO BLEEDING NOTED.
--- NOTE | 2016-12-29 14:15 | NUR ---
3CC OF AIR REMOVED FROM TR BAND, NO BLEEDING NOTED. LEFT HAND PIV D/C'D WITH CATHETER INTACT. BAND AID TO SITE. UP TO BEDSIDE TO GET DRESSED.
--- NOTE | 2016-12-29 14:25 | NUR ---
UP TO RESTROOM TO VOID.
--- NOTE | 2016-12-29 14:30 | NUR ---
DISCHARGE INSTRUCTIONS GIVEN, VERBALIZED UNDERSTANDING. REMAINING AIR REMOVED FROM TR BAND AND DRESSING PLACED TO SITE.
--- NOTE | 2016-12-29 14:40 | NUR ---
TAKEN OUT VIA WHEELCHAIR BY CATH SENIOR FOREMAN. LEFT FACILITY WITH AND ALL PERSONAL BELONGINGS.
== END 2016-12-29 14:40 | disposition home or self-care (01) ==
LOC: D.CATH 08:05
PROVIDERS: Internal Medicine Interventional Cardiology
DX: I25.110 Atherosclerotic heart disease of native coronary artery with unstable angina pectoris (principal); Z95.5 Presence of coronary angioplasty implant and graft; Z01.812 Encounter for preprocedural laboratory examination
CPT/HCPCS: 92921; C9600

== ENCOUNTER → 2019-02-09 10:22 | Outpatient (CLI) | payer MEDICARE ==
[2016-12-29 08:25] VITALS: BMI 22.7
--- NOTE | 2019-02-22 09:52 | ST ---
PATIENT:NELLY LIM MEDICAL RECORD: [id number] SEX: F LOCATION:[facility] ORDER #: ADMISSION DATE: 02/09/19 AGE OF PATIENT: 84 REFERRING PHYSICIAN: INTERPRETING PHYSICIAN: EVA MCCORD MD DATE OF SERVICE: 02/09/2019 INDICATIONS: Angina, coronary artery disease, shortness of breath, hypertension. PROCEDURE IN DETAIL: She was exercised on standard Lexiscan protocol with 32 mCi of sestamibi injected at peak stress, 11 mCi used previously for rest images. FINDINGS: Gated SPECT reveals preserved ejection fraction at 62% with good wall motioning and thickening and brightening throughout all segments. SPECT Imaging: Cardiolite was used for myocardial perfusion agent. There is reversibility anteriorly and apically. This includes basal, mid, apical anterior segments as well as the apex itself and the degree of reversibility is mild to moderate. The amount of myocardium involved is moderate to large. OVERALL IMPRESSION: This is an abnormal nuclear stress test with reversible ischemia throughout the anteroapical segments, but preserved ejection fraction does suggest presence of hemodynamically significant coronary artery disease. TRANSINT:[id number] Voice Confirmation ID: [id number] DOCUMENT ID: [id number] EVA MCCORD MD at 0952 CC: HASEEB FRIAS DO [id number] DICTATION DATE: 02/11/19 1511 PACKAGING MACHINE SUPPLIES DISTRIBUTOR: 02/12/19 0436 [facility] CLI 02/09/19 [place] [id number] [place] [address]
== END | disposition home or self-care (01) ==
LOC: D.HCCARDIO 10:22
PROVIDERS: ATTEND Internal Medicine Interventional Cardiology
DX: I20.9 Angina pectoris, unspecified (principal); I10 Essential (primary) hypertension; R06.00 Dyspnea, unspecified

== ENCOUNTER 2019-02-18 07:59 | Outpatient (CLI) | payer MEDICARE ==
[~2019-02-18] VITALS: Ht 152.4 cm; Wt 54.5 kg
--- NOTE | ~2019-02-18 | HEMODYNAMI ---
PATIENT:NELLY LIM MEDICAL RECORD: [id number] : 35 LOCATION:[facility] ADMISSION DATE: 02/18/19 Generatedon:02/18/201910:29 Patient name: NELLY LIM Patient #: [id number] SSN: [id number] : 1935 Date of study: 02/18/2019 Page: Of Hemodynamic Procedure Report Patient Data Patient Demographics Procedure consent was obtained First Name: NELLY Gender: Female Last Name: RAPHAEL : 1935 [facility] Initial: RUTHANN Age: 84 year(s) Patient #: [id number] Race: SSN: [id number] Additional ID: [id number] Contact details [address]: [address] [place] [address] rd State: [place] City: [place] Zip code: [address] Past Medical History Performed procedures and imaging results Date Procedure Procedure Results Comments Stress testing Positive->Intermediate with SPECT MPI risk History of disease Date Diagnosis Comments CAD Allergies Allergen Reaction Date Comments Reported Penicillins 12/19/2016 Other allergy 12/29/2016 penicillin Penicillins 02/18/2019 Admission Admission Data Admission Date: 02/18/2019 Admission Time: 7:59 Arrival Date: 02/18/2019 Arrival Time: 0:00 Admit Source: Other Insurance Payor: Medicare [facility] #: [id number] Height (in.): 60 BSA: 1.51 (m2) Height (cm.): 152.4 BMI: 23.68 (kg/m2) Weight (lbs.): 121.25 Weight (kg.): 55 Current Diagnosis Diagnosis Description Stable angina Lab Results Lab Result Date: 02/18/2019 Lab Result Time: 0:00 Biochemistry Name Units Result Min Max BUN mg/dl 31 --(----)-* 7 18 Creatinine mg/dl 0.9 --(-*--)-- 0.6 1.3 eGFR ml/min 63 *-(----)-- 90 120 NONAFRICAN CBC Name Units Result Min Max Hematocrit % 42.4 --(*---)-- 42 54 Hemoglobin g/dl 14.3 --(*---)-- 13.5 17.5 Procedure Procedure Types Cath Procedure Diagnostic Procedure [facility] w/Coronaries FFR/IVUS FFR Initial PCI Procedure Coronary Stent Coronary Stent Initial x2 Procedure Description Procedure Date Procedure Date: 02/18/2019 Procedure Start Time: 10:10 Procedure End Time: 10:26 Procedure Staff Name Function Rogelio Noonan MD Performing Physician Ty Kyle RT Monitor Brenda Burgos RT Scrub Serge Lilly RN Nurse Indication CAD Procedure Data Cath Procedure Fluoroscopy Diagnostic fluoroscopy Total fluoroscopy Time: 4.7 time: 4.7 min min Diagnostic fluoroscopy Total fluoroscopy dose: 336 dose: 336 mGy mGy Contrast Material Contrast Material Type Amount (ml) Isovue 300 82 Entry Location Entry Primary Successful Side Size Upsize Upsize Entry Closure Conti ccessful Closure Location (Fr) 1 (Fr) 2 (Fr) Remarks Device Remarks Radial Right 6 Fr Mechanical artery Short Compression Diagnostic catheters Device Type Used For End Catheter Placement DIAGNOSTIC [place] 110cm 5 Left Coronary Fr catheter ([id number]) Angiography Procedure Complications No complications Procedure Medications Medication Administration Route Dosage Oxygen etCO2 Nasal cannula 2 l/min Lidocaine 2% added to field 20 Heparin Flush Bag added to field 2 bags (1000units/500ml NS) 0.9% NaCl I.V. 100 ml/hr Radial Cocktail I.A. 1 syringe (Verapamil 2mg/Nitro 400mcg/Heparin 1500units) Versed I.V. 2 mg Fentanyl I.V. 75 mcg Heparin Bolus I.V. 4000 units Integrilin (Bolus I.V. 5 ml 2mg/ml) Plavix P.O. 600 mg Hemodynamics Rest BSA: 1.51 (m2) HGB: 14.3 (g/dl) O2 Consumption: Estimated: 135.05 (ml/min) O2 Co nsumption indexed: Estimated:89.44 (ml/min/m) Heart Rate: 71 (bpm) Snapshots Pre Cath Intra NCS Post Cath Vital Signs Time Heart Resp SPO2 etCO2 NIBP (mmHg) Rhythm Pain Sedation Rate (ipm) (%) (mmHg) Status Level (bpm) 9:44:45 59 12 99 0 140/69(107) SB 0 (11) 10(A) , No pain 9:49:04 54 10 98 33 132/54(104) SB 0 (11) 10(A) , No pain 9:53:22 59 11 99 36.8 121/56(88) SB 0 (11) 10(A) , No pain 9:57:31 50 10 99 0 116/50(81) SB 0 (11) 10(A) , No pain 10:01:48 58 11 99 0 101/50(66) SB 0 (11) 10(A) , No pain 10:05:59 49 12 99 0 99/47(63) SB 0 (11) 10(A) , No pain 10:10:11 47 13 97 0 98/44(79) SB 0 (11) 9(A) , No pain 10:14:19 65 17 97 0 87/52(67) SB 0 (11) 9(A) , No pain 10:18:25 65 14 97 38 94/49(67) SB 0 (11) 9(A) , No pain 10:22:29 68 14 96 16.5 111/59(88) SB 0 (11) 10(A) , No pain 10:26:39 68 11 96 36 121/64(91) SB 0 (11) 10(A) , No pain Medications Time Medication Route Dose Verified Delivered Reason Not es Effectiveness by by 9:53:01 Oxygen etCO2 2 l/min Rogelio Valentine used for Nasal Shaista Lilly RN procedure cannula 9:53:07 Lidocaine 2% added 20ml Rogelio Mercado for local to vial Shaista Noonan MD anesthetic field 9:53:14 Heparin Flush added 2 bags Rogelio Mercado used for Bag to Shaista Noonan MD procedure (1000units/500ml field NS) 9:53:35 0.9% NaCl I.V. 100 Rogelio Valentine Per physician ml/hr Shaista Lilly RN 9:53:48 Radial Cocktail I.A. 1 Rogelio Mercado for (Verapamil syringe Shaista Noonan MD vasodilation 2mg/Nitro 400mcg/Heparin 1500units) 10:07:44 Versed I.V. 2 mg Rgoelio Valentine for sedation Shaista Lilly RN 10:08:06 Fentanyl I.V. 75 mcg Rogelio Valentine for sedation Shaista Lilly RN 10:18:21 Heparin Bolus I.V. 4000 Rogelio bean yaritza ified units Shaista Lilly RN anticoagulation with Dr. Noonan 10:18:35 Integrilin I.V. 5 ml Rogelio bean was elmer (Bolus 2mg/ml) Shaista Lilly RN antiplatelet 5mL therapy 10:22:23 Plavix P.O. 600 mg Rogelio Lilly RN antiplatelet therapy Procedure Log Time Note 9:21:48 Procedure Status Elective Heart Cath (OP). 9:21:50 Time tracking: Regular hours (M-F 7:00 - 5:00) 9:21:55 Plan of Care:Hemodynamics will remain stable., Cardiac rhythm will remain stable., Comfort level will be maintained., Respiratory function will remain adequate., Patient/ family verbilizes understanding of procedure., Procedure tolerated without complication., Recovers from procedure without complications.. 9:21:56 Signed procedure consent form obtained from patient. 9:24:21 Patient allergic to Penicillins 9:24:29 Arrival Date: 02/18/2019 12:00:00 AM 9:25:01 Insurance Payor : Medicare 9:25:04 Admit Source: Other 9:25:50 Patient Height : 60 inches 9:25:57 Patient Weight : 121.25 lbs 9:28:00 Current Diagnosis : Stable angina 9:28:41 Lab Result : Hemoglobin 14.3 g/dl 9:28:41 Lab Result : Hematocrit 42.4 % 9:28:41 Lab Result : eGFR NONAFRICAN 63 ml/min 9:28:41 Lab Result : BUN 31 mg/dl 9:28:41 Lab Result : Creatinine 0.9 mg/dl 9:28:49 Diagnostic Cath Status : Elective 9:28:50 PCI Cath Status : Elective 9:29:02 Indication : CAD 9:30:52 Serge Lilly RN sent for patient. Start room use. 9:37:58 Patient received from Pre/Post Procedure Room to CCL 1 Alert and oriented. Tansferred to table in Supine position. 9:37:59 Warm blankets applied, and lavern hugger turned on for patient comfort. 9:38:00 Correct patient and procedure confirmed by team. 9:38:02 ECG and BP/O2 sat monitors applied to patient. 9:43:38 Vital chart was started 9:43:39 Baseline sample Acquired. 9:43:42 Rhythm: sinus rhythm 9:43:49 Baseline sample Acquired. 9:45:10 Full Disclosure recording started 9:45:22 H&P Date Dictated: 02/07/2019 Within 30 days and on chart., H&P Addendum completed by physician on day of procedure. (MUST COMPLETE FOR ALL OUTPATIENTS). 9:45:23 Pre-procedure instructions explained to patient. 9:45:24 Pre-op teaching completed and patient verbalized understanding. 9:45:26 Family in waiting room. 9:45:27 Patient NPO since Midnight. 9:45:50 Baseline sample Acquired. 9:45:56 Is the patient allergic to Iodine/contrast media? No. 9:45:59 Is patient on blood thinner?Yes 9:46:01 ACC The patient was administered the following blood thiners within the last 24 hours: ACCAspirin 9:46:04 Patient diabetic? No. 9:46:05 ----Pre-sedation anethsthesia assessment.---- 9:46:07 Previous problem with sedation/anesthesia? No ? 9:46:08 Snore? Yes 9:46:10 Sleep apnea? No 9:46:16 Deviated septum? No 9:46:18 Opens mouth fully? Yes 9:46:21 Sticks out tongue? Yes 9:46:23 Airway obstruction? No ? 9:46:26 Dentures? No ? 9:46:28 Pre procedure: right dorsailis pedis pulse 2+ Normal; easily identifiable; not easily obliterated 9:46:31 Modified Juan's test Ulnar < 7 seconds 9:46:34 Patient pain scale 0/10 ?. 9:46:40 IV patent on arrival in left hand with 0.9% NaCl at KVO. 9:46:43 Lab results completed and on chart. 9:46:47 Right Radial & Right Groin area was prepped with chlora-prep and draped in sterile fashion 9:46:48 Alarms reviewed by R. N. 9:46:49 Sharps counted by scrub and verified by R.N. 9:46:52 Physician paged 9:53:01 Oxygen 2 l/min etCO2 Nasal cannula was administered by Buffie Lilly RN; used for procedure; 9:53:07 Lidocaine 2% 20ml vial added to field was administered by Rogelio Noonan MD; for local anesthetic; 9:53:14 Heparin Flush Bag (1000units/500ml NS) 2 bags added to field was administered by Rogelio Noonan MD; used for procedure; 9:53:35 0.9% NaCl 100 ml/hr I.V. was administered by Serge Lilly RN; Per physician; 9:53:48 Radial Cocktail (Verapamil 2mg/Nitro 400mcg/Heparin 1500units) 1 syringe I.A. was administered by Rogelio Noonan MD; for vasodilation; 10:00:12 Zero performed for pressure channel P1 10:07:44 Versed 2 mg I.V. was administered by Serge Lilly RN; for sedation; 10:08:06 Fentanyl 75 mcg I.V. was administered by Serge Lilly RN; for sedation; 10:08:49 Physician arrived 10:08:50 --------ALL STOP TIME OUT------ 10:08:50 Final Timeout: patient, procedure, and site verified with staff and physician. All members of the team are in agreement. 10:08:52 Right Radial & Right Groin site verified by team. 10:08:56 Fire Safety Assessment: A--An alcohol-based skin anteseptic being used preoperatively., C--Open oxygen or nitrous oxide is being used., D--An ESU, laser, or fiber-optic light is being used. 10:09:01 Physical assessment completed. ASA score P 2 - A patient with mild systemic disease as per Rogelio Noonan MD. 10:09:27 2) 60-89 Mildly reduced kidney function, and other findings (as for stage 1) point to kidney disease. 10:09:55 Maximum allowable contrast dose (3.7 X eGFR X 0.75)174 ml. 10:10:00 Sedation plan: IV Moderate Sedation Medication:Versed, Fentanyl 10:10:15 Use device set Radial Dx or PCI 10:10:16 ACIST Syringe (64127) opened to sterile field. 10:10:16 Medline Cath Pack ([id number]) opened to sterile field. 10:10:16 Bag Decanter (2002) opened to sterile field. 10:10:17 ACIST Hand Control (62776) opened to sterile field. 10:10:17 ACIST Manifold (57961) opened to sterile field. 10:10:18 Tegaderm 4 x 4 (1626W) opened to sterile field. 10:10:18 MBrace Wrist Support ([id number]) opened to sterile field. 10:10:21 TR BAND Standard (HEC94YYI) opened to sterile field. 10:10:22 EMERALD Guide Wire (502-181) opened to sterile field. 10:10:23 SHEATH 6FR RAIN (6700044) opened to sterile field. 10:10:27 Procedure started. 10:10:54 Local anesthetic to right radial artery with Lidocaine 2% by Rogelio Noonan MD.INITIAL ACCESS ONLY 10:11:01 A 6 Fr Short sheath was inserted into the Right Radial artery 10:11:41 A DIAGNOSTIC [place] 110cm 5 Fr catheter (012795) was advanced over the wire and used for Left Coronary Angiography. 10:12:03 LV angiography performed. 10:12:06 LV gram done using BARRIGA 10:12:37 EF : 60 % 10:12:51 LCA angiography performed. 10:13:48 RCA angiography performed. 10:14:40 Catheter exchanged over wire. 10:15:34 INFLATOR Merit BasixCompak (OQ3516) opened to sterile field. 10:15:35 GUIDE 6FR XBLAD 3.5 catheter (76838984) opened to sterile field. 10:15:36 CHOICE PT Extra Support 182cm wire ([id number]) opened to sterile field. 10:15:44 ACC Pre-intervention MANA Flow is 3. 10:15:53 Pre PCI Site: [place] mLAD has 90% stenosis. 10:16:03 6 Fr XBLAD 3.5 guide catheter was inserted over the wire 10:16:07 CPTES wire advanced. 10:17:43 Place stent Inflation Number: 1 A MACEY RX 2.5 x 15 stent ([id number]) was prepped and advanced across the Mid LAD 90. The stent was deployed at 13 KATHERINE for 0:11 (min:sec) 0. 10:17:49 Stent catheter was removed intact over wire. 10:17:58 Wire removed. 10:18:03 CPTES wire advanced. 10:18:21 Heparin Bolus 4000 units I.V. was administered by Serge Lilly RN; for anticoagulation; verified with Dr. Noonan 10:18:35 Integrilin (Bolus 2mg/ml) 5 ml I.V. was administered by Serge Lilly RN; for antiplatelet therapy; wasted 5mL 10:18:35 I[place]on Verrata Plus pressure wire (93125A) opened to sterile field. 10:18:48 Procedure type changed to Cath procedure, Diagnostic procedure, LHC, LHC w/Coronaries, FFR/IVUS, FFR Initial, PCI procedure, Coronary Stent, Coronary Stent Initial x2 10:19:35 Pre PCI Site: [place] pCirc has 90% stenosis. 10:19:50 Place stent Inflation Number: 1 A MACEY RX 2.5 x 12 stent ([id number]) was prepped and advanced across the Mid CX 90. The stent was deployed at 11 KATHERINE for 0:08 (min:sec) 0. 10:20:28 Post PCI Site: [place] pCirc has 0% stenosis. 10:20:37 Post PCI Site: [place] mLAD has 0% stenosis. 10:20:41 Stent catheter was removed intact over wire. 10:20:42 Wire removed. 10:20:43 Guide catheter removed. 10:21:05 GUIDE 6FR AR 1.0 SH catheter ([id number]) opened to sterile field. 10:21:16 6 Fr AR 1 SH guide catheter was inserted over the wire 10:21:22 FFR/IVUS 10:21:23 FFR/IFR wire advanced. 10:21:25 Wire advanced across lesion. 10:22:23 Plavix 600 mg P.O. was administered by Serge Lilly RN; for antiplatelet therapy; 10:23:50 mRCA lesion measured at 0.91 with IFR 10:24:44 Wire removed. 10:24:46 Catheter removed. 10:24:54 Contrast amount:Isovue 300 82ml. 10:25:21 Sheath removed intact; hemostasis achieved with Mechanical Compression to the Right Radial artery. 10:25:27 Procedure ended.(Physican Out) 10:25:36 Fluoroscopy time 04.70 minutes. 10:25:40 Fluoroscopy dose: 336 mGy 10:25:40 Flurop Dose total: 336 10:25:48 Maximum allowable dose exceeded? No. 10:25:49 Sharps counted by scrub and verified by R.N. 10:25:51 TR band inflated with 12cc of air. 10:25:53 Insertion/operative site no bleeding no hematoma. 10:25:59 Post right radial artery:stable 10:26:04 Post procedure rhythm: unchanged. 10:26:05 Post procedure instruction explained to patient.Patient verbalizes understanding. 10:26:05 Procedure and supply charges have been captured, reviewed, submitted and are correct. 10:26:19 Procedure Complication : No complications 10::45 Vital chart was stopped 10::45 See physician's report for complete and final results. 10::48 Report given to Pre/Post Procedure Room. 10::53 Patient transfered to Pre/Post Procedure Room with Stretcher. 10::54 Procedure ended. 10::54 Full Disclosure recording stopped 10:27:01 ACC-PCI Only Patient was given prescriptions, or instructed by Rogelio Noonan MD to start/continue the following medications upon discharge: Plavix 10:27:02 End room use (Document Last) Intervention Summary Intervention Notes Time ActionType Lesion and Equipment Used Action# Pressure Duration Attributes 10:17:43 Place stent Mid LAD MACEY RX 2.5 x 1 13 00:11 15 stent ([id number]) 10:19:50 Place stent Mid CX MACEY RX 2.5 x 1 11 00:08 12 stent ([id number]) Device Usage Item Name Manufacture Quantity Catalog Number Hospital Part Current Minimal Lot# / Charge Number Stock Stock Serial# Code ACIST Syringe Acist 1 73856 448335 [id number] [id number] 20 (29072) Medical Systems Inc Medline Cath Medline 1 [id number] 573664 37685 719792 5 Pack ([id number]) Bag Decanter Microtek 1 2001S 933621 65403 382793 5 (2001S) Medical Inc. ACIST Hand Acist 1 22156 383134 637031 754254 5 Control Medical (88304) Systems Inc ACIST Manifold Acist 1 73291 859036 359642 409233 5 (69938) Medical Systems Inc Tegaderm 4 x 4 3M 1 1626W 179392 002079 524979 5 (1626W) MBrace Wrist Advanced 1 140-0250-00 617071 04602 865214 5 Support Vascular (736075376) Dynamics TR BAND Terumo 1 PPS20-PHT 432195 352129 087109 40 Standard ([id number]) EMERALD Guide Cardinal 1 502-455 089575 135983 066854 5 Wire (502-455) Health SHEATH 6FR Cardinal 1 6195870 321509 5020515 308762 5 RAIN (2811835) Health DIAGNOSTIC Terumo 1 40-5013 168869 549809 569454 5 [place] 110cm 5 Fr catheter (538069) INFLATOR Merit Merit 1 KA2342 468382 065094 573518 15 BasixTourjive Medical (HJ5174) GUIDE 6FR Cardinal 1 [id number] 761271 264355 917842 10 XBLAD 3.5 Health catheter (95472725) CHOICE PT [place] 1 [id number] 441236 676710 955755 5 Extra Support Scientific 182cm wire (2789316D7) MACEY RX 2.5 x Medtronic 1 [id number] 196811 0906389 715014 5 [id number] 15 stent ([id number]) Ireton Ireton 1 83470A 724892 366419652 318494 5 [id number] Verrata Plus 294026 pressure wire (00828O) MACEY RX 2.5 x Medtronic 1 [id number] 498813 7978672 010829 5 [id number] 12 stent ([id number]) GUIDE 6FR AR Medtronic 1 [id number] 151731 09893 709229 1 1.0 SH catheter ([id number]) Signature Audit Purcell Stage Time Signature Unsigned Intra-Procedure 02/18/2019 Ty Kyle RT(R) 10:29:03 AM Signatures Performing Physician : Signature : Rogelio Noonan MD Date : Time : Monitor : Ty Kyle RT Signature : Date : Time : Nurse : Buffie Lilly RN Signature : Date : Time : [address] [place] [address]
[2019-02-18 08:28] VITALS: BP 140/74; Ht 152.4 cm; Wt 54.5 kg
[2019-02-18 08:42] LABS: BASOPHILS 0.2 % (0-2); EOSINOPHILS 1.7 % (0-7); HEMATOCRIT 42.4 % (36.0-48.0); HEMOGLOBIN 14.3 g/dL (12-16); IMMATURE GRANULOCYTES 0.4 % (0-5); LYMPHOCYTES 13.3 % (15-50); MCH 30.8 pg (26.0-34.0); MCHC 33.7 g/dL (31.0-37.0); MCV 91.2 fL (80.0-100.0); MEAN PLATELET VOLUME 10.2 fL (7.4-10.4); MONOCYTES 9.1 % (2-11); NEUTROPHILS 75.3 % (40-80); PLATELET COUNT 183 10x3/uL (130-400); RBC 4.65 10x6/uL (4.00-5.40); RDW 13.4 % (11.5-14.5); WBC 8.4 10x3/uL (4.8-10.8)
[2019-02-18 08:58] LABS: ANION GAP 13.4 mmol/L (8-16); CARBON DIOXIDE 25.7 mmol/L (21.0-32.0); CREATININE - SERUM 0.9 mg/dL (0.6-1.3)
[2019-02-18 09:03] LABS: LDL-HDL RATIO 1.7 ratio (1.5-3.5)
[2019-02-18 09:04] LABS: POTASSIUM - SERUM 5.1 mmol/L (3.5-5.1)
[2019-02-18] MEDS ORDERED: PLAVIX75 MG PO (10:37)
--- NOTE | 2019-02-18 10:37 | NUR ---
PT ARRIVED BY STRETCHER. PLACED ON MONITORS. ASSESSMENT COMPLETED. RIGHT RADIAL TR BAND IN PLACE. NO BLEEDING/HEMATOMA NOTED. CALL LIGHT WITHIN REACH. FAMILY AT BEDSIDE.
--- NOTE | 2019-02-18 10:50 | NUR ---
HEMATOMA NOTED TO RIGHT WRIST PROXIMAL TO TR BAND. PRESSURE HELD AND CALLED AND NOTIFIED MAX IN PERFECT BINDER SETTER.
--- NOTE | 2019-02-18 11:10 | NUR ---
TR BAND SUCCESSFULLY REPOSITIONED. PT TOLERATED WELL. 13cc OF AIR IN TR BAND. CAP REFILL < 3 SECS TO DISTAL FINGERS. CALL LIGHT WITHIN REACH. FAMILY AT BEDSIDE. PT TOLERATING SIPS OF SPRITE.
--- NOTE | 2019-02-18 11:15 | NUR ---
RIGHT RADIAL TR BAND IN PLACE. NO MORE BLEEDING NOTED. HEMATOMA SITE SOFT. CAP REFILL < 3 SECS X 4 EXT
--- NOTE | 2019-02-18 11:30 | NUR ---
RIGHT RADIAL TR BAND IN PLACE. NO BLEEDING NOTED. PT TOLERATING WELL. RIGHT ARM PROPPED UP ON PILLOW FOR COMFORT. CALL LIGHT WITHIN REACH. FAMILY AT BEDSIDE. VSS.
--- NOTE | 2019-02-18 12:04 | NUR ---
RIGHT WRIST TR BAND IN PLACE. NO BLEEDING/HEMATOMA NOTED. PT C/O SOME CHEST HEAVINESS AT LEFT CHEST. NO EKG CHANGES. DENIES PAIN.
--- NOTE | 2019-02-18 12:11 | NUR ---
DR. MCCORD ROUNDED AND SPOKE WITH PT AND PT'S . UPDATED HIM ON PT'S COMPLAINTS OF CHEST HEAVINESS. NO FURTHER ORDERS RECEIVED AT AT THIS TIME. WILL CONTINUE TO MONITOR.
--- NOTE | 2019-02-18 12:35 | NUR ---
PT ON BEDPAN. VOIDED APPROX 200 cc OF CLEAR YELLOW URINE WITHOUT DIFFICULTY. MEENA-CARE GIVEN. CALL LIGHT WITHIN REACH. RIGHT WRIST TR BAND IN PLACE. NO BLEEDING/HEMATOMA NOTED.
--- NOTE | 2019-02-18 13:07 | NUR ---
PT RESTING COMFORTABLY. VSS. RIGHT RADIAL TR BAND IN PLACE. NO BLEEDING/HEMATOMA NOTED.
--- NOTE | 2019-02-18 13:19 | NUR ---
2cc OF AIR REMOVED FROM TR BAND. NO BLEEDING/HEMATOMA NOTED. VSS. FAMILY AT BEDSIDE. CALL LIGHT WITHIN REACH.
--- NOTE | 2019-02-18 13:35 | NUR ---
2cc OF AIR REMOVED FROM TR BAND. PT TOLERATED WELL. VSS. PT PULLED UP AND HEAD OF BED INC TO 30 DEGREES. SET UP WITH SANDWICH TRAY. FAMILY AT BEDSIDE. NO OTHER NEEDS AT THIS TIME.
--- NOTE | 2019-02-18 13:54 | NUR ---
3cc OF AIR REMOVED FROM TR BAND. NO BLEEDING/HEMATOMA NOTED. PT ATE SANDWICH. DENIES NAUSEA. VSS. NO OTHER NEEDS AT THIS TIME. FAMILY AT BEDSIDE.
--- NOTE | 2019-02-18 14:12 | NUR ---
3cc OF AIR REMOVED FROM TR BAND. NO BLEEDING/HEMATOMA NOTED. VSS. FAMILY AT BEDSIDE.
--- NOTE | 2019-02-18 14:30 | NUR ---
3cc OF AIR REMOVED FROM TR BAND. NO BLEEDING/HEMATOMA NOTED. VSS. LEFT HAND PIV D/C'D WITH CATH TIP INTACT. PT TOLERATED WELL. PT SAT UP ON SIDE OF BED. FAMILY AT BEDSIDE TO ASSIST PT GETTING DRESSED.
--- NOTE | 2019-02-18 14:35 | NUR ---
PT TO RESTROOM. VOIDED WITHOUT DIFFICULTY. TR BAND REMOVED AND DRESSING APPLIED. NO BLEEDING/HEMATOMA NOTED. PT INSTRUCTED TO KEEP RIGHT WRIST STRAIGHT. CALL LIGHT WITHIN REACH.
--- NOTE | 2019-02-18 14:40 | NUR ---
PT'S YELLED OUT THAT SHE IS BLEEDING. ARRIVED IN ROOM AND PT'S RIGHT WRIST BLEEDING FROM SITE. PRESSURE HELD.
--- NOTE | 2019-02-18 14:50 | NUR ---
PRESSURE HELD TO RIGHT WRIST X 10 MINUTES. BLEEDING HAS STOPPED. DRESSING REAPPLIED TO RIGHT WRIST. NO MORE BLEEDING NOTED AT THIS TIME. PT SITTING BACK IN BED. RIGHT ARM PROPPED ON PILLOW. WILL MONITOR TO MAKE SURE NO MORE BLEEDING PRIOR TO DISCHARGE HOME.
--- NOTE | 2019-02-18 15:20 | NUR ---
NO BLEEDING NOTED TO RIGHT WRIST. DRESSING C/D/I. PT DOES NOT FEEL COMFORTABLE LEAVING YET. WILL CONTINUE TO MONITOR.
--- NOTE | 2019-02-18 15:45 | NUR ---
PT PUT ON CLEAN PANTS. AMBULATED TO RESTROOM. VOIDED WITHOUT DIFFICULTY. RIGHT WRIST DRESSING C/D/I. NO S/S OF HEMATOMA NOTED. PT FEELS MORE COMFORTABLE GOING HOME AT THIS TIME.
--- NOTE | 2019-02-18 16:00 | NUR ---
DISCUSSED DISCHARGE INSTRUCTIONS WITH PT AND PT'S FAMILY. THEY VOICED UNDERSTANDING. RIGHT WRIST DRESSING C/D/I. NO S/S OF HEMATOMA NOTED. ALL BELONGINGS AND PAPERWORK IN HAND. PT TAKEN OUT TO VEHICLE BY WHEELCHAIR. NO S/S OF DISTRESS NOTED.
--- NOTE | 2019-02-22 09:53 | OP ---
PATIENT NAME: NELLY LIM MEDICAL RECORD: [id number] :35 LOCATION:[facility] ADMISSION DATE: SURGEON: EVA MCCORD MD DATE OF OPERATION: 02/18/2019 PROCEDURES: 1. PTCA stent LAD. 2. PTCA stent left circumflex. 3. IFR. 4. Left heart catheterization. 5. Selective coronary angiography. 6. Left ventriculogram. INDICATION: Unstable angina and coronary artery disease. PROCEDURE IN DETAIL: After informed consent was obtained and after a detailed description of the risks, benefits as well as alternative therapies, the patient elected to proceed with angiogram and angioplasty. The right radial area was prepped and draped in normal sterile fashion. Right radial artery was cannulated via modified Seldinger technique with placement of 6-Kazakh sheath. All catheters exchanged through this sheath. FINDINGS: Left ventriculogram was performed in standard 30-degree BARRIGA view, reveals good cardiac wall motion, ejection fraction is 60%. SELECTIVE CORONARY ANGIOGRAPHY: 1. Left main is with no significant angiographic disease. 2. Left anterior descending has previously placed stent. This is widely patent; however, there is 90% stenosis after this. 3. Left circumflex has 90% stenosis in the mid vessel. 4. The right coronary artery has previously placed stent. There is a questionable area of stenosis proximal; however, IFR was normal. PTCA STENT OF THE LAD: The stent used was a 2.5 x 15 mm [place]. Result was 0% residual stenosis. PTCA STENT OF THE LEFT CIRCUMFLEX: The stent used was a 2.5 x 12 mm [place]. Result was 0% residual stenosis. OVERALL IMPRESSION: Successful percutaneous transluminal coronary angioplasty stent of the left anterior descending and left circumflex, both going from 90% initial stenosis to 0% residual. TRANSINT:[id number] Voice Confirmation ID: [id number] DOCUMENT ID: [id number] EVA MCCORD MD at 0953 CC: [id number] DICTATION DATE: 02/18/19 1032 ASSEMBLER FLEXIBLE LEADS: 02/18/19 1044 [facility] CLI 02/18/19 [place] [address]
== END 2019-02-18 16:00 | disposition home or self-care (01) ==
LOC: D.CATH 07:59
PROVIDERS: ATTEND Internal Medicine Interventional Cardiology
DX: I25.110 Atherosclerotic heart disease of native coronary artery with unstable angina pectoris (principal); Z01.812 Encounter for preprocedural laboratory examination
CPT/HCPCS: 93458; C9600 ×2; 93571

== ENCOUNTER → 2019-05-26 16:40 | Outpatient (CLI) | payer MEDICARE ==
[2019-02-18 08:28] VITALS: BMI 23.4
[2019-05-27 10:19] LABS: CHOL - HDL RATIO 3.9 ratio (2.3-4.1); LDL-HDL RATIO 2.5 ratio (1.5-3.5)
== END | disposition home or self-care (01) ==
LOC: D.LABREF 16:40
PROVIDERS: ATTEND Internal Medicine Interventional Cardiology
DX: I25.10 Atherosclerotic heart disease of native coronary artery without angina pectoris (principal)

== ENCOUNTER → 2019-08-17 16:30 | Outpatient (CLI) | payer MEDICARE ==
[2019-02-18 08:28] VITALS: BMI 23.4
[2019-08-17 17:35] LABS: CHOL - HDL RATIO 2.2 ratio (2.3-4.1)
== END | disposition home or self-care (01) ==
LOC: D.LABREF 16:30
PROVIDERS: ATTEND Internal Medicine Interventional Cardiology
DX: E78.5 Hyperlipidemia, unspecified (principal); I25.10 Atherosclerotic heart disease of native coronary artery without angina pectoris

== ENCOUNTER → 2019-12-20 20:21 | Outpatient (CLI) | payer MEDICARE ==
[2019-02-18 08:28] VITALS: BMI 23.4
[2019-12-20 21:05] LABS: CHOL - HDL RATIO 2.2 ratio (2.3-4.1); LDL-HDL RATIO 1.1 ratio (1.5-3.5)
== END | disposition home or self-care (01) ==
LOC: D.LABREF 20:21
PROVIDERS: ATTEND Family Medicine Adult Medicine
DX: E78.5 Hyperlipidemia, unspecified (principal)